=== PATIENT | female | born 1995 | race Caucasian/White ===

== ENCOUNTER 2022-03-27 09:30 | Outpatient (CLI) | payer OTHER, SELFPAY ==
[2022-03-27 11:34] LABS: Vitamin D 25 Hydroxy* 31 ng/mL (30-80)
[2022-03-27 11:47] LABS: Hepatitis B Surface Antigen* Negative (Negative)
[2022-03-27 12:04] LABS: Hepatitis C Virus Antibody* Negative (Negative)
[2022-03-27 12:54] LABS: HIV 1/2/P24 Combo Screen* Negative (Negative)
[2022-03-27 18:52] LABS: Chlamydia DNA Amplified* NOT DETECTED (No Detected); GC DNA Amplified* NOT DETECTED (No Detected)
[2022-03-28 22:08] LABS: Rapid Plasma Reagin (RPR) Non Reactive (Non Reactive)
[2022-03-29 01:22] LABS: Rubella Antibody IgG 16.9 IU/mL; Varicella-Zoster Virus Ab, IgG 245.9 IV
== END 2022-03-27 09:31 | disposition home or self-care (01) ==
PROVIDERS: Visit Provider Advanced Practice Midwife
DX: Z34.91 Encounter for supervision of normal pregnancy, unspecified, first trimester (principal); Z3A.01 Less than 8 weeks gestation of pregnancy
CPT/HCPCS: 76817; 82306; 84443; 86592; 86703; 86762; 86787; 86803; 86850; 86900; 86901; 87086; 87340; 87491; 87591

== ENCOUNTER 2022-06-15 07:12 | Outpatient (CLI) | payer OTHER, SELFPAY ==
--- NOTE | 2022-06-15 07:15 | CRLHL7_ITS ---
For Patients: As a result of the Century Cures Act, medical imaging exams and procedure reports are released immediately into your electronic medical record. You may view this report before your referring provider. If you have questions, please contact your health care provider. INDICATION: Evaluate anatomy. COMPARISON: 03/27/2022 TECHNIQUE: Real time lee scale imaging of the fetus was performed as well as color Doppler analysis of the umbilical vessels. FINDINGS: Sonographic imaging demonstrates a single living intrauterine gestation. Fetus demonstrates a regular cardiac rate of 139 beats per minute. Fetus has a vertex position. The placenta lies anteriorly without evidence of placenta previa. The placental tip is located 11.6 cm from the internal cervical os. Amniotic fluid volume appears normal. Single deepest vertical pocket: 3.5 cm. The cervix is closed and measures 4.4 cm in length. The composite ultrasound gestational age is calculated at 19 weeks 3 days with an estimated sonographic due date of 11/06/2022. The estimated weight is 295 grams which lies at the 32nd %. The following biometric measurements were obtained: Biparietal diameter: 4.5 cm/19 weeks 3 days 40th% Head circumference: 16.6 cm/19 weeks 2 days 23rd% Abdominal circumference: 14.6 cm/19 weeks 6 days 52nd% Femur length: 2.9 cm/19 weeks 0 days 19th% The HC/AC ratio measures: 1.13 range (1.08-1.26) On anatomic survey, there is a normal appearance of the cerebral ventricles, cavum septi pellucidi, cisterna magna and cerebellum. The nose, lips, and facial profile appear normal. The cervical, thoracic and lumbar spine are well visualized and appear normal. There is a normal four-chamber heart view and the left and right ventricular outflow tracts appear normal. The diaphragm and stomach appear normal. The kidneys and bladder also appear normal. There is a normal three-vessel cord and cord insertion site. The four extremities appear normal. IMPRESSION: Normal OB ultrasound exam with concordance of clinical and sonographic dating. No intrinsic abnormalities noted on anatomic survey. Dictated by Jose Holguin MD @ 06/15/2022 8:56:44 AM (Electronically Signed)
== END 2022-06-15 07:13 | disposition home or self-care (01) ==
PROVIDERS: Visit Provider Advanced Practice Midwife
DX: Z34.82 Encounter for supervision of other normal pregnancy, second trimester (principal); Z3A.19 19 weeks gestation of pregnancy
CPT/HCPCS: 76805

== ENCOUNTER 2022-07-13 17:15 | Outpatient (CLI) | payer OTHER, SELFPAY ==
[2022-07-13 17:24] VITALS: PULSE 88; O2SAT 99
[2022-07-13 17:25] VITALS: BP 127/80; PULSE 82
[2022-07-13 17:43] VITALS: BMI 32.9
--- NOTE | 2022-07-13 19:14 | W.PM.OBO ---
OB Outpatient HPI History of Present Illness Date Seen: 07/13/22 History of Present Illness: Elke is a 27 year old at 23 5/7 weeks gestation by dating based on conception, DEMETRIUS , presents with fall on right side in ice and snow. Pt reports she was walking and feet came out from under her, landing on right side buttocks, no direct abdominal injury. Upon arrival pt was having low abdominal pain but denied contractions or cramping. Pt does feel sore, having some left sided pain. Baby moving naturally: Yes Bleeding: No Contractions: No Leaking fluid: No Discharge: No Meds Home Medications and Allergies Home Medications Medication Instructions Recorded Confirmed Type prenat.vits,vicki,[id number] 1 tab PO QDAY 03/27/22 06/15/22 History Allergies Allergy/AdvReac Type Severity Reaction Status Date / Time No Known Drug Allergies Allergy Verified 06/15/22 08:25 PFS Medical History (Updated 07/13/22 @ 19:16 by Sameera Echavarria CNM) Normal colonoscopy Family History (Updated 03/27/22 @ 09:03 by Jigna Velazquez CNM) Mother High blood pressure High cholesterol Father High blood pressure High cholesterol Myocardial infarction Social History Smoking Status: Former smoker Little interest or pleasure in doing things: not at all Feeling down, depressed, or hopeless: not at all History History 3 Elective abortions 0 Para 2 Spontaneous abortions 0 Hx # Term Pregnancies 2 Ectopic pregnancies Hx # Pregnancies 0 Multiple births Number of Living Children 2 Past Pregnancies Del. Date GA/Weeks Outcome Route wt Inf Gender Labor Lgth Anesthesia Location Provider Compli 01/04/18 40 live - full term vaginal delivery 8 lb 3 oz Male 13 hours none [place] eclampsia VTE hemorrhage placenta previa placenta abruption labor multiple antepartum trauma gestational diabetes infection chronic hypertension gestational hypertension 10/22/20 39 live - full term vaginal delivery 8 lb 5 oz Male 10 hours epidural [place] other Delivery Date: 01/04/18 Last Updated by: Alejandrina Garber post delivery patient passed out on the toilet due to low iron Delivery Date: 10/22/20 Last Updated by: Alejandrina Garber oswaldo side up/retained membranes OB - H&P: Exam Physical Exam Vital signs: Pulse BP Pulse Ox 82 127/80 99 07/13/22 17:25 01/19/23 17:25 07/13/22 17:24 Constitutional Constitutional: no acute distress Routine HEENT Exam Head: Present normocephalic Detailed Abdominal Exam Comments: No rebound tenderness or pain with palpation Detailed Labor and Delivery Exam Patient Gravid: Yes Comments: no contractions present Fetus (Single) Heart Rate Baseline: 140 Monitor Accelerations: Present Monitor Decelerations: None Emission Technician Variability: Moderate (6-25) Routine Back/Spine/Pelvis Exam Back/Spine: full ROM Routine Skin Exam Present intact Routine Neurological Exam Present alert and oriented X3 Routine Psychiatric Exam Present normal affect Assessment and Plan Assessment and plan (1) Fall due to ice or snow: Status: Acute Plan at 23 5/7 weeks Fall due to ice and snow Pain likely due to tissue trauma 1. Observation in triage for a minimum of 4 hours from time of fall, if pt has increased pain, contractions or concerning FHR tracing would consider 24 hours of monitoring. 2. Anticipate discharge home after 4 hours. Discussed with patient warning signs, concerning symptoms and when to return. Reviewed comfort measures, home remedies and pain medication.
[2022-07-13 19:25] VITALS: BP 130/75; PULSE 73; TEMP 36.8
--- NOTE | 2022-07-13 20:34 | PC.OBNST ---
NST Note NST Note Start: 07/13/22 17:27 Freq: ONCE Status: Active Protocol: Document 07/13/22 19:50 ANTONELLA (Rec: 07/13/22 20:34 ANTONELLA [id number]) NST Note 3 Para (# of births) 2 EDC 11/04/22 Gestational Age In Weeks & Days 23 Weeks & 5 Days Patient Presented with Complaint(s) of Observation after an injury If Observation after an injury, describe Fall at 1545 Reactive Yes Appropriate for Gestational Age Yes YANI Alex, YANIC Date 07/13/22 Reactive Yes Appropriate for Gestational Age Yes YANI Chu, RN Date 07/13/22 OB NST charge Yes Complete NST Note via Write Note Yes The provider's electronic signature indicates the NST is reactive/appropriate for gestational age. *Note to provider: If an addendum is required, open the patient's chart and click on the note under the Nurse/Allied Health tab.
== END 2022-07-13 20:00 | disposition home or self-care (01) ==
LOC: OB OUT 17:15 → OB 17:16
PROVIDERS: Visit Provider Advanced Practice Midwife
DX: O26.892 Other specified pregnancy related conditions, second trimester (principal); W00.9XXA Unspecified fall due to ice and snow, initial encounter; Z3A.24 24 weeks gestation of pregnancy
CPT/HCPCS: 59025; 99213

== ENCOUNTER 2022-08-11 13:36 | Outpatient (CLI) | payer OTHER, SELFPAY ==
[2022-08-13 18:37] LABS: Rapid Plasma Reagin (RPR) Non Reactive (Non Reactive)
== END 2022-08-11 13:37 | disposition home or self-care (01) ==
LOC: NFLDREF 13:36
PROVIDERS: Visit Provider Advanced Practice Midwife
DX: Z34.82 Encounter for supervision of other normal pregnancy, second trimester (principal); Z3A.27 27 weeks gestation of pregnancy
CPT/HCPCS: 86592

== ENCOUNTER 2022-08-21 08:41 | Outpatient (CLI) | payer OTHER, SELFPAY ==
[2022-08-21 08:53] LABS: Glucose Fasting Check 73 mg/dl (60-115)
[2022-08-21 12:50] LABS: Glucose 1 Hour Gest 153 mg/dl (70-180)
[2022-08-21 12:53] LABS: Glucose GTT-Gestational 3 Hr 134 mg/dl (70-140)
== END 2022-08-21 08:42 | disposition home or self-care (01) ==
PROVIDERS: PCP Advanced Practice Midwife; Visit Provider Advanced Practice Midwife
DX: Z34.93 Encounter for supervision of normal pregnancy, unspecified, third trimester (principal); Z3A.29 29 weeks gestation of pregnancy
CPT/HCPCS: 82951; 82952

== ENCOUNTER 2022-08-23 14:50 | Outpatient (CLI) | payer OTHER, SELFPAY | END 2022-08-23 14:51 | disposition home or self-care (01) | LOC: NFLDREF 08-31 11:47 | PROVIDERS: PCP Advanced Practice Midwife; Visit Provider Advanced Practice Midwife | DX: Z34.93 Encounter for supervision of normal pregnancy, unspecified, third trimester (principal); R82.90 Unspecified abnormal findings in urine; Z3A.29 29 weeks gestation of pregnancy | CPT/HCPCS: 87210 ==

== ENCOUNTER 2022-10-05 15:17 | Outpatient (CLI) | payer OTHER, SELFPAY ==
[2022-10-06 14:49] LABS: Strep B DNA Probe NEGATIVE (Negative)
[2022-10-06 15:38] LABS: Strep B Pen/Amox Allergy No
== END 2022-10-05 15:18 | disposition home or self-care (01) ==
LOC: NFLDREF 15:17
PROVIDERS: Visit Provider Advanced Practice Midwife
DX: Z34.93 Encounter for supervision of normal pregnancy, unspecified, third trimester (principal); Z3A.36 36 weeks gestation of pregnancy
CPT/HCPCS: 87081; 87653

== ENCOUNTER 2022-11-01 04:30 | Inpatient (IN) | payer OTHER, SELFPAY ==
[2022-11-01] VITALS (14 sets, daily range): BP systolic 113–143; BP diastolic 56–89; PULSE 67–103; RESP 16–18; TEMP 36.5–37.1; O2SAT 96–97; BMI 35.9
--- NOTE | 2022-11-01 05:25 | P.LDBA_ITS ---
Subjective History of Present Illness Narrative: Patient is being admitted to Labor and Delivery for . She is a 27 year old at weeks gestation. Her full history and physical was dictated by [] on []. Please see this for details. [] Comments: Elke is being admitted to Labor and Delivery for early labor. She is a 27 year old G 3 P 2 at?39.6 weeks gestation. Her full history and physical was dictated by Gerald Alegre on 10/13. Please see this for details. She states ctx started around 0200. Denies SROM, but states she went quickly last delivery after her water broke. She is coping well with labor pain/contractions. Her partner is with her for support. She is planning to go unmedicated but declines a water . OB Problem List: 1. Nausea - Zofran order placed 2. Anxiety and depression, possible Seasonal affective disorder - Reported symptoms have worsened at 24wk apt Started Zoloft 25 mg 06/15/2022 - stopped after 5 days d/t racing heart Script for Wellbutrin 150 sent 07/17/22 [facility] for med management and therapy 3. Hx of PPD & Anxiety with last 2 babies 4. Hx of retained placenta w/ D&C; 2nd 5. Hx of GHTN; 1st 6. 12 lb weight loss in 1st trimester Continue to monitor weight changes 7. Tachycardia - racing heart for up to 2 hours several times a week Cardiology apt 07/24/22 8. Failed 1hr: 157, 3 hr: passed /. No GDM. 9. 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 (Cardiology records not yet received.) 10. Anemia. Hgb 10.5 at 36.1 weeks OB - Problem Based A/P Additional Plan (1) Uterine contractions: Status: Acute (2) Depression: Status: Acute (3) Tachycardia: Status: Acute (4) Anxiety: Status: Acute Plan at 39.6 weeks GBS negative Early labor complicated by: -Hx of anxiety & Depression -Hx of retained placenta requiring a D & C -Hx of GHTN w/ 1st -Tachycardia and possible DOOLEY diagnosis -anemia -Failed 1 hr GTT, passed 3 hr with 1 abnormal value 1. Admit to L & D for early labor. Expectant management at this time 2. Candidate for analgesia of choice. Planning unmedicated 3. Declines waterbirth 4. Intermittent monitoring per protocol 5. IV access not required at this time 6. Anticipate progress to NVD Delivery/Labor/Induction Plan Plan: expectant management OB Exam Physical Exam Vital signs: Pulse BP 85 129/78 11/01/22 05:06 11/01/22 05:06 Narrative: VSS, afebrile? General Appearance:? Calm, cooperative.? No acute distress.? Normal affect.? Psychiatric Exam: Alert and oriented, appropriate affect? HEENT: normocephalic, neck supple, full ROM? Respiratory:? Symmetrical chest wall movement.? Normal respiratory effort.? Clear to auscultation? Cardiac:? regular rate and rhythm? Abdomen: Gravid, non tender? Extremities:? normal and trace edema? Skin: warm, dry.??? Ctx:? Q 1-5 min apart.? Mild?- Moderate? ? FHTs:? Baseline: 135.? Variability: moderate.?? Accels: present.??? Decels:? none.? SVE: 4-5/30/-2 per RN? Membranes: intact?
[2022-11-01] MEDS: OXYTOCIN 10 UNIT/ML INJ IM (07:25)
--- NOTE | 2022-11-01 07:40 | W.PM.OBVAGDE ---
OB Procedure Vag Delivery Mother Details Mother Details: The patient is a 27 year-old, 3, Para 2, admitted on 11/01/22 at Days gestation. : 3 Para: 3 Weeks Gestation: 39.6 Admission Date: 11/01/22 Additional Details Amniotic Membrane Status: SROM Amniotic Membrane Rupture Date: 11/01/22 Amniotic Membrane Rupture Time: 07:13 Amniotic Membrane Fluid Description: Clear Analgesia/Anesthesia Type: None Waterbirth: No Pitcoin: Yes ( only) Intrapartal Events: None Labor Onset: 06:30 Complete: 07:07 (assumed complete with pushing) Pushin:07 Heart: heart tones during second stage were not obtained during the short pushing stage. Doptones prior to pushing were 140's with accelerations heard and no decelerations heard. Delivery Details Delivery Date: 11/01/22 Delivery Time: 07:14 Route of delivery: Infant Gender: Female Viability: Alive; Heart Rate Present Position at Delivery: OA Delivery Details: Delivered over intact perineum via spontaneous vaginal delivery. was placed on maternal abdomen.? Cord was clamped and cut after a 5 minute delay.? weight pending. Elke come in in active labor and progressed well to complete. She was in multiple positions in labor mostly upright and ambulating around the room. She delivered standing at the bedside. She was guided into bed after delivery of the baby to hold her baby and deliver the placenta. weight 8lb 2oz.? Shoulder dystocia: no.? Nuchal cord: no.?Placenta delivered spontaneously and complete at 0724 with a 3 vessel cord.? 1 Minute Interval Total Score: 8 5 Minute Interval Total Score: 8 Additional Details Shoulder Dystocia: No Placenta Delivery Time: 07:24 Placental Delivery Description: Spontaneous Blood Loss: 25 Laceration: None Episiotomy Description: None Blood Loss Measurement Type: QBL Bakri Used: No Sponge/Need Count Correct: Yes Cord Vessel Description: 3 Vessels Event Summary Status: Mother and were stable after delivery. Disposition: floor
[2022-11-01] MEDS: DOCUSATE SODIUM 100 MG CAPSULE PO (13:51)
[2022-11-01] MEDS: IBUPROFEN 600 MG TABLET PO (17:36)
[2022-11-01] MEDS: ACETAMINOPHEN 500 MG TABLET 1000 MG PO (22:25)
[2022-11-02 01:50] VITALS: BP 115/77; PULSE 78; RESP 18; TEMP 36.7; O2SAT 96
[2022-11-02] MEDS: IBUPROFEN 600 MG TABLET PO (01:59)
[2022-11-02 05:35] VITALS: BP 103/65; PULSE 79; RESP 18; TEMP 36.7; O2SAT 98
[2022-11-02 07:01] LABS: Hemoglobin* 9.8 gm/dL (12.0-16.0)
--- NOTE | 2022-11-02 08:07 | P.DS_ITS ---
DS: Providers Provider Date Seen: 11/02/22 Date of admission: 11/01/22 04:30 Primary care physician: Sameera Echavarria CNM Admitting Clinician: Nadine Alegre CNM Attending Physician on discharge: Sameera Echavarria CNM DS: Diagnosis Discharge Diagnosis (1) care and examination immediately after delivery: Status: Acute (2) Lactating mother: Status: Acute (3) Normal vaginal delivery: Status: Acute (4) Anemia affecting : Status: Acute Problem details: Hgb 9.8 post delivery. Continue oral iron supplementation. Exam Narrative: Exam Narrative: GENERAL APPEARANCE:? normal affect, alert, no distress MOOD:? appropriate CHEST:? clear to auscultation HEART:? regular rate and rhythm ABDOMEN:? soft, non-tender the uterine fundus is at Umbilicus, Midline and is appropriate for the stage of recovery. PERINEUM:? mild edema of the perineum EXTREMITIES:? normal and no edema Const: Vital Signs, click to edit/add: Vital Signs - 24 hr 11/01/22 08:10 11/01/22 08:25 11/01/22 08:40 Temperature Pulse Rate 67 73 78 Pulse Rate [Pulse Oximeter] Respiratory Rate Blood Pressure 131/74 140/84 H 131/74 Blood Pressure [Ri ght Arm] Pulse Oximetry Oxygen Delivery Me thod 11/01/22 08:55 11/01/22 09:10 11/01/22 09:25 Temperature Pulse Rate 75 80 81 Pulse Rate [Pulse Oximeter] Respiratory Rate Blood Pressure 121/62 113/72 114/56 L Blood Pressure [Ri ght Arm] Pulse Oximetry Oxygen Delivery Me thod 11/01/22 11:58 11/01/22 17:34 11/01/22 20:29 Temperature 98.7 F 97.9 F 98.3 F Pulse Rate Pulse Rate [Pulse Oximeter] 80 103 H 73 Respiratory Rate 16 16 18 Blood Pressure Blood Pressure [Ri ght Arm] 127/71 136/89 121/79 Pulse Oximetry 96 97 97 Oxygen Delivery Me thod Room Air Room Air Room Air 11/02/22 01:50 11/02/22 05:35 Temperature 98.0 F 98.0 F Pulse Rate Pulse Rate [Pulse Oximeter] 78 79 Respiratory Rate 18 18 Blood Pressure Blood Pressure [Ri ght Arm] 115/77 103/65 Pulse Oximetry 96 98 Oxygen Delivery Me thod Room Air Room Air OB - DS: Summary Hospital Course Hospital Course: Elke is a 27 year old G 3 P 3 at 39 6/7 weeks gestation that was admitted to the Center on 11/01/22 for spontaneous onset of labor. She had an uncomplicated vaginal delivery. She delivered a viable female . The p atient feels well. ?The pain is well controlled with current medications. ?She has no new complaints. ?She is breast feeding and reports things are going well.? the patient has done well.? Vitals have been stable.? She has remained afebrile.? Has a good appetite, is tolerating a general diet. ?She is voiding without difficulty.? She is passing gas and has not had a bowel movement.? She is ambulating and denies any dizziness.? Has Small amount of rubra lochia. ?She is planning condoms while her gets a vasectomy for prevention . Peripartum Data Infant delivery method: Vaginal Laceration description: None complications: none [place] Infant Gender: Female Discharge Plan: Home Status at Discharge Functional status at discharge: independent ambulation Overall status at discharge: patient is progressing back to baseline Time Spent with Patient Time attestation: Total time spent providing and/or coordinating discharge services: Time spent: Less than 30 minutes Discharge Plan Discharge Disposition: Home, Self-Care Date of Admission: 11/01/22 04:30 Attending Provider on Discharge: Sameera Echavarria Primary Care Provider: Sameera Echavarria Condition: Stable Anticipated Discharge Date/Time: 11/02/22 12:00 Discharge Medications: New acetaminophen 500 mg Tablet 1,000 mg PO Q6H PRNQty: 0 0RF docusate sodium 100 mg Capsule 100 mg PO DAILY PRN (Reason: Constipation) Qty: 0 0RF ibuprofen 600 mg Tablet 600 mg PO Q6H PRNQty: 0 0RF Continued prenat.vits,vicki,[id number] Tablet 1 tab PO QDAY polysaccharide iron complex [iFerex 150] 150 mg iron capsule 150 mg PO QDAY Qty: 90 3RF omeprazole 20 mg capsule,delayed release(DR/EC) 20 mg PO QDAY Discharge Orders: Discharge Order (Routine); Ordered 11/02/22 Ordered By: Smaeera Echavarria Patient Education: OB Over the Counter Medication Information, OB Vaginal/Breast Feeding Additional Instructions: Discharge instructions were reviewed with the patient including signs and symptoms of infection and home going medications Nothing vaginally for 6 weeks: no tampons or intercourse Off Work or School for 6 weeks 2-week visit: discuss feeding concerns, review control options and screen for anxiety/depression. 6-week visit for an annual exam. consultation services are available to all mothers and babies for the first year after delivery.? To make an appointment, please call [phone]. Activity Level: Activity as Tolerated Discharge Diet: Regular Follow Up Appointments: [facility] [Provider Group] Forms: [employer] Info Instructions
[2022-11-02 09:35] VITALS: BP 126/84; PULSE 79; RESP 18; TEMP 36.7; O2SAT 98
[2022-11-02] MEDS: DOCUSATE SODIUM 100 MG CAPSULE PO (09:55)
[2022-11-02] MEDS: ACETAMINOPHEN 500 MG TABLET 1000 MG PO (09:55)
== END 2022-11-02 11:00 | disposition home or self-care (01) | DRG 806 ==
LOC: OB OUT 04:31 → OB 04:31
PROVIDERS: Advanced Practice Midwife; Admitting Provider Advanced Practice Midwife; PCP Advanced Practice Midwife; Visit Provider Advanced Practice Midwife
DX: O99.02 Anemia complicating childbirth (principal); D62 Acute posthemorrhagic anemia; Z37.0 Single live birth; Z3A.39 39 weeks gestation of pregnancy; O99.344 Other mental disorders complicating childbirth; F41.9 Anxiety disorder, unspecified
CPT/HCPCS: 36415; 85018; 85025; 86850; 86900; 86901; A9270; J2590

== ENCOUNTER 2023-04-12 10:32 | Outpatient (CLI) | payer OTHER, SELFPAY | END 2023-04-12 10:33 | disposition home or self-care (01) | LOC: NFLDREF 04-18 06:06 | PROVIDERS: Visit Provider Advanced Practice Midwife | DX: N89.8 Other specified noninflammatory disorders of vagina (principal) | CPT/HCPCS: 87491; 87591 ==

== ENCOUNTER 2024-07-09 10:07 | Outpatient (CLI) | payer OTHER, SELFPAY | END 2024-07-09 10:08 | disposition home or self-care (01) | PROVIDERS: Visit Provider Advanced Practice Midwife | DX: N94.6 Dysmenorrhea, unspecified (principal) | CPT/HCPCS: 82728; 84443; 85610; 85730 ==